=== PATIENT | male | born 1945 | race Caucasian/White ===

== ENCOUNTER → 2016-08-19 | Outpatient (CLI) | payer MEDICARE, BC ==
[~2016-08-19] MED LIST: ADVICOR PO; ASPIRIN 32325 MG/TAB PO; AZULFIDINE 500500 MG PO; CYMBALTA 60MG60 MG PO; GLIPIZIDE5 MG PO; MASON NATURAL L20 MG PO; METFORMIN1000 MG PO; PROVIGIL200 MG PO; RISPERDAL2 MG PO; VITAMIN C500 MG PO; ZOLPIDEM10 MG PO
== END ==
LOC: BHSO 11:35
DX: F31.74 Bipolar disorder, in full remission, most recent episode manic (principal)

== ENCOUNTER → 2017-01-15 | Outpatient (CLI) | payer MEDICARE, BC | LOC: BHSO 14:19 | DX: F31.12 Bipolar disorder, current episode manic without psychotic features, moderate (principal) ==

== ENCOUNTER → 2017-02-19 | Outpatient (CLI) | payer MEDICARE, BC | LOC: BHSO 10:40 | DX: F31.73 Bipolar disorder, in partial remission, most recent episode manic (principal) ==

== ENCOUNTER 2017-03-26 08:02 | Day surgery (SDC) | payer MEDICARE, BC ==
[~2017-03-26] VITALS: Ht 170.2 cm; Wt 118.0 kg
[2017-03-26 08:34] VITALS: BP 97/63; PULSE 76; TEMP 97.4
[2017-03-26] MEDS ORDERED: GLUCOPHAGE1000 MG PO (09:03)
[2017-03-26] MEDS ORDERED: LUTEIN20 M1 PO (09:04)
[2017-03-26] MEDS ORDERED: ASPIRIN 81M81 MG/TA2 PO (09:04)
[2017-03-26] MEDS ORDERED: VITAMIND3 5000 PO (09:06)
[2017-03-26] MEDS ORDERED: EFFEXOR-XR150 MG PO (09:07)
[2017-03-26] MEDS ORDERED: VITAMIN FLUSH-F1 CAP PO (09:07)
[2017-03-26] MEDS ORDERED: FISH OIL 500 M1 EAC1 PO (09:08)
[2017-03-26] MEDS ORDERED: ZOCOR 40MG40 MG PO ×2 (09:20→09:29)
[2017-03-26] MEDS ORDERED: GLUCOTROL10 MG PO (09:20)
[2017-03-26] MEDS ORDERED: DEPAKOTE 250MG250 MG PO (09:21)
[2017-03-26] MEDS ORDERED: LEVEMIR FLEX100 U/ML SQ (09:22)
[2017-03-26] MEDS ORDERED: ZESTRIL2.5 MG PO (09:23)
[2017-03-26] MEDS ORDERED: TOPROL XL 25MG25 MG PO (09:23)
[2017-03-26] MEDS ORDERED: VITAMIN C500 MG PO (09:24)
[2017-03-26] MEDS ORDERED: SINGULAIR 110 MG/TAB PO (09:25)
[2017-03-26] MEDS ORDERED: ACTOS 15MG TAB15 MG PO (09:25)
[2017-03-26] MEDS ORDERED: ZYRTEC 10MG10 MG PO (09:26)
[2017-03-26] MEDS ORDERED: THEO-24 30300 MG/CAP PO (09:27)
[2017-03-26] MEDS ORDERED: TRULICITY1.5 MG/0.5 SQ (09:28)
[2017-03-26] MEDS ORDERED: NATURAL MAGNES200 MG PO (09:28)
[2017-03-26] MEDS ORDERED: NORCO 325 MG-51 TAB PO (09:32)
[2017-03-26] MEDS ORDERED: FLOMAX 0.40.4 MG/CAP PO (09:33)
[2017-03-26] MEDS ORDERED: RISPERDAL 1M1 MG/TAB PO (09:33)
[2017-03-26] MEDS ORDERED: CEPHALEXIN500 M1 PO (09:34)
[2017-03-26 12:15] VITALS: BP 118/62; BP 134/63; PULSE 92; PULSE 95; TEMP 98.4
[2017-03-26 12:30] VITALS: BP 134/77; PULSE 95
== END 2017-03-26 12:50 | disposition home or self-care (01) ==
LOC: SDCO 08:02
DX: N20.1 Calculus of ureter (principal); I25.10 Atherosclerotic heart disease of native coronary artery without angina pectoris; F32.9 Major depressive disorder, single episode, unspecified; E11.9 Type 2 diabetes mellitus without complications; E78.5 Hyperlipidemia, unspecified; G47.33 Obstructive sleep apnea (adult) (pediatric); Z90.49 Acquired absence of other specified parts of digestive tract; Z95.5 Presence of coronary angioplasty implant and graft; Z79.84 Long term (current) use of oral hypoglycemic drugs; Z83.3 Family history of diabetes mellitus; Z84.1 Family history of disorders of kidney and ureter; Z82.49 Family history of ischemic heart disease and other diseases of the circulatory system
CPT/HCPCS: A9284; C1769; C2617; J0690; J2250; J2405; J2704; J2765; J3010; J7030; Q9967

== ENCOUNTER 2017-03-28 17:11 | Emergency (ER) | payer MEDICARE, BC ==
[~2017-03-28] VITALS: Ht 170.2 cm; Wt 116.4 kg
[~2017-03-28 17:11] MED LIST changes: +ACTOS 15MG TAB15 MG PO; +ASPIRIN 81M81 MG/TA2 PO; +CEPHALEXIN500 M1 PO; +DEPAKOTE 250MG250 MG PO; +EFFEXOR-XR150 MG PO; +FISH OIL 500 M1 EAC1 PO; +FLOMAX 0.40.4 MG/CAP PO; +GLUCOPHAGE1000 MG PO; +GLUCOTROL10 MG PO; +LEVEMIR FLEX100 U/ML SQ; +LUTEIN20 M1 PO; +NATURAL MAGNES200 MG PO; +NORCO 325 MG-51 TAB PO; +RISPERDAL 1M1 MG/TAB PO; +SINGULAIR 110 MG/TAB PO; +THEO-24 30300 MG/CAP PO; +TOPROL XL 25MG25 MG PO; +TRULICITY1.5 MG/0.5 SQ; +VITAMIN FLUSH-F1 CAP PO; +VITAMIND3 5000 PO; +ZESTRIL2.5 MG PO; +ZOCOR 40MG40 MG PO; +ZYRTEC 10MG10 MG PO
[2017-03-28 17:17] VITALS: TEMP 98
[2017-03-28 18:07] LABS: COLLECTION METHOD CLEAN CATCH
[2017-03-28 18:14] LABS: PH 6 (5-8); SQUAMOUS EPITHELIAL None Seen /hpf; URINE APPEARANCE Turbid; URINE BACTERIA None Seen /hpf; URINE BILIRUBIN Negative (NEGATIVE); URINE BLOOD 3+ (NEGATIVE); URINE COLOR Red; URINE GLUCOSE 1+ (NEGATIVE); URINE KETONE 1+ (NEGATIVE); URINE LEUKOCYTE ESTERASE Negative (NEGATIVE); URINE PROTEIN(semi-quant) 2+ (NEGATIVE); URINE RBC >50 /hpf; URINE UROBILINOGEN Negative (NEGATIVE); URINE WBC None Seen /hpf
[2017-03-28 18:46] LABS: BASO % 0.2 % (0.0-2.0); GRAN # 13.2 (1.4-6.5); HEMOGLOBIN 14.9 g/dl (13.5-18.0); LYMPH # 0.8 (1.2-3.4); LYMPH % 5.6 % (20.0-51.0); MEAN CELL VOLUME 88 fl (80.0-100.0); MEAN CORPUSCULAR HEMOGLOBIN 30 pg (27.0-31.0); MEAN CORPUSCULAR HGB CONC 34 g/dl (33.0-37.0); MEAN PLATELET VOLUME 9.7 fl (7.4-10.4); MONO # 0.9 (0.1-0.6); MONO % 5.8 % (1.7-9.3); PLATELET COUNT 181 K/mm3 (130-400); RED BLOOD COUNT 4.98 M/mm3 (4.20-5.60)
[2017-03-28 18:55] LABS: ADJUSTED CALCIUM 8.9 mg/dL (8.4-10.2); ALBUMIN 4.9 gm/dL (3.5-5.0); BILIRUBIN,TOTAL 1.8 mg/dL (0.0-1.0); CALCIUM 9.6 mg/dL (8.4-10.2); CREATININE, serum 0.65 mg/dL (0.66-1.25); POTASSIUM 4.5 mmol/L (3.4-5.0); TOTAL PROTEIN 8.5 gm/dL (6.4-8.2)
[2017-03-28] MEDS ORDERED: PERCOCET 325 MG1 TA2 PO (20:45)
[2017-03-28 21:08] VITALS: BP 106/76; PULSE 77
== END 2017-03-28 21:10 | disposition home or self-care (01) ==
LOC: COL.ER 17:11
PROVIDERS: Emergency Medicine
DX: N23 Unspecified renal colic (principal)
CPT/HCPCS: J1170; J1885; J2405; J7030

== ENCOUNTER → 2017-04-09 | Outpatient (CLI) | payer MEDICARE, BC ==
[~2017-04-09] MED LIST changes: +PERCOCET 325 MG1 TA2 PO
== END ==
LOC: BHSO 10:50
DX: F31.73 Bipolar disorder, in partial remission, most recent episode manic (principal)

== ENCOUNTER → 2017-05-20 | Outpatient (CLI) | payer MEDICARE, BC | LOC: BHSO 14:41 | DX: F31.73 Bipolar disorder, in partial remission, most recent episode manic (principal) | CPT/HCPCS: G0463 ==